=== PATIENT | female | born 1975 | race Two or more races ===

== ENCOUNTER 2018-09-16 10:47 | Outpatient (CLI) | payer OTHER ==
[~2018-09-16 10:47] MED LIST: ALLEGRA30 MG PO
== END 2018-09-16 10:58 | disposition home or self-care (01) ==
LOC: SONOGRAMA 10:47
DX: N93.8 Other specified abnormal uterine and vaginal bleeding (principal)

== ENCOUNTER → 2021-10-01 | Outpatient (CLI) | payer OTHER | END | disposition home or self-care (01) | LOC: SONOGRAMA 10:00 | DX: N97.2 Female infertility of uterine origin (principal); N80.9 Endometriosis, unspecified; N84.0 Polyp of corpus uteri; Z98.890 Other specified postprocedural states ==